=== PATIENT | male | born 1975 | race Caucasian/White ===

== ENCOUNTER 2019-10-18 20:10 | Emergency (ER) | payer OTHER ==
[~2019-10-18] VITALS: Ht 160 cm; Wt 36.9 kg
[2019-10-18] MEDS ORDERED: AMLODIPINE-OLM1 EAC3 (20:35)
[2019-10-18] MEDS ORDERED: SEVELAMER CARB800 MG (20:35)
[2019-10-18] MEDS ORDERED: HUMALOG100 UNIT/1 (20:35)
[2019-10-18] MEDS ORDERED: LANTUS SOL100 UNIT/1 (20:35)
== END 2019-10-18 21:13 | disposition home or self-care (01) ==
LOC: ER 20:10
DX: E13.649 Other specified diabetes mellitus with hypoglycemia without coma (principal)